=== PATIENT | male | born 1960 | race Caucasian/White ===

== ENCOUNTER 2017-06-01 16:28 | Emergency (ER) | payer OTHER ==
[~2017-06-01] VITALS: Ht 177.8 cm; Wt 120.2 kg
[2017-06-01] MEDS ORDERED: GLUCOPHAGE1000 MG PO (16:49)
[2017-06-01] MEDS ORDERED: LISINOPRIL40 MG PO (16:50)
[2017-06-01] MEDS ORDERED: LIPITOR20 MG PO (16:51)
[2017-06-01] MEDS ORDERED: FLOMAX0.4 MG PO (18:25)
== END 2017-06-01 18:49 | disposition home or self-care (01) ==
LOC: ED 16:28
PROC: 4A0D7LZ Measurement of Urinary Volume, Via Natural or Artificial Opening (ICD-10-PCS; principal; 2017-06-01)
PROC: 0T9B70Z Drainage of Bladder with Drainage Device, Via Natural or Artificial Opening (ICD-10-PCS; 2017-06-01)
DX: R33.8 Other retention of urine (principal); E78.5 Hyperlipidemia, unspecified; I10 Essential (primary) hypertension; E11.9 Type 2 diabetes mellitus without complications; Z79.84 Long term (current) use of oral hypoglycemic drugs; Z79.899 Other long term (current) drug therapy
CPT/HCPCS: 51702; 51798; 81001; 99284